=== PATIENT | female | born 1965 | race Caucasian/White ===

== ENCOUNTER 2016-10-08 12:16 | Emergency (ER) | payer OTHER ==
[2016-10-08] MEDS ORDERED: ONDANSETRON 4 MG/2 ML VIAL IVP ONE (12:25)
[2016-10-08] MEDS ORDERED: NORMAL SALINE 10 ML SYRINGE FLUSH IVP PRN (12:25)
[2016-10-08] MEDS ORDERED: Sodium Chloride 0.9% 1,000 ML PRIMARY IV ONE (12:25)
[2016-10-08 13:14] LABS: AMYLASE 46 U/L (30-110); ASPARTATE AMINO TRANSFERASE 24 IU/L (8-39); BILIRUBIN,TOTAL 0.8 mg/dL (0.3-1.2); BLOOD UREA NITROGEN 19 mg/dL (7-22); BUN/CREATININE RATIO 27.14 (6-20); CHLORIDE 112 meq/L (98-112); CREATININE 0.7 mg/dL (0.50-1.20); EST GLOMERULAR FILTRATION > 60 (>60 ml/min/1.73m(2)); GLUCOSE 86 mg/dL (78-110); POTASSIUM 4.1 meq/L (3.8-5.2); SODIUM 139 meq/L (135-145); TOTAL PROTEIN 7.5 g/dL (6.1-8.0)
[2016-10-08 13:15] LABS: BASOPHILS # (AUTO) 0.04 10*3/UL; BASOPHILS % (AUTO) 0.5 % (0-1); EOSINOPHILS % (AUTO) 2.8 % (0-8); HEMATOCRIT 42.1 % (37.0-47.0); HEMOGLOBIN 14.5 g/dL (12.0-16.0); IMM GRAN % (AUTO) 0.1 % (0-5); IMM GRAN# (AUTO) 0.01 10*3/UL; LYMPHOCYTES # (AUTO) 2.39 10*3/uL; LYMPHOCYTES % (AUTO) 29.3 % (10-50); MEAN CORPUSCULAR HEMOGLOBIN 30.5 PG (27-31); MEAN CORPUSCULAR HGB CONC 34.4 g/dL (33-37); MEAN PLATELET VOLUME 10.8 FL (7.4-12.2); MONOCYTES % (AUTO) 7.3 % (5-15); RDW COEFFICIENT OF VARIATION 14.3 % (11.5-14.5); RED BLOOD COUNT 4.76 10^6/uL (4.20-5.40); WHITE BLOOD COUNT 8.17 10^3/uL (4.8-10.8)
[2016-10-08 13:17] LABS: PLATELET MORPHOLOGY COMMENT NORMAL MORPHOLOGY (NORM)
--- NOTE | 2016-10-08 15:17 | DI ---
HISTORY: Abdominal pain. PREVIOUS EXAM: None available. TECHNIQUE: Multiple helically acquired CT images are obtained through the abdomen and pelvis without contrast. FINDINGS: CT images demonstrate a large pericardial effusion. The lung bases are clear except for a small left pleural effusion. There is also a small right pleural effusion. The liver is unremarkable. The gallbladder is distended, but no stones are seen in the common bile d uct appears normal. The spleen and pancreas are unremarkable. The adrenals and kidneys are unremarka ble. There is no mesenteric or retroperitoneal lymphadenopathy. The urinary bladder is unremarkable . There is some fluid noted within the rectum. Skeletal structures are unremarkable except for mild loss of intervertebral disc height at the L5/S1 level. There is mild bilateral neural foraminal narrowing. IMPRESSION: 1. Large pericardial effusion. 2. Small bilateral pleural effusions. 3. No acute intra-abdominal pathology.
[2016-10-08 17:38] VITALS: RESP 16; TEMP 96.5
--- NOTE | 2016-10-09 02:37 | PDOC ---
Nausea/Vomiting/Diarrhea HPI - General Chief Complaint: Nausea / Vomiting / Diarrhea Stated Complaint: nausea, vomiting, abdominal pain Date Seen by Provider: 10/08/16 Time Seen by Provider: 12:15 Source: POSITIVE: Patient Exam Limitations: POSITIVE: No limitations Nurse's Notes Reviewed & Considered: Yes - History of Present Illness Initial Comments: The patient is a 51-year-old female. She presented to the urgent care clinic, who sent her to the emergency room for evaluation. Patient states that for the past 4 days she's had some nausea and vomiting and also some periumbilical and upper abdominal discomfort. She states she has had similar episodes in the past and has been diagnosed with irritable bowel syndrome. She states her abdominal pain is somewhat more prominent now than it has been with her previous episodes. Patient has had a hysterectomy. She has a history of paracardial effusions and did have a pericardiocentesis in the past. She states she had one episode of vomiting today and 4 episodes of vomiting in the past 24 hours. Body Location Affected: REPORTS: Abdomen Timing: REPORTS: Intermittent Duration: >24 hours (4 days) Severity: Moderate Quality: REPORTS: "Pain" Abdominal Pain Onset Location: REPORTS: Epigastric, Periumbilical, Suprapubic Abdominal Pain Radiation: REPORTS: No radiation Context: REPORTS: None Modifying Factors: improves with: Nothing Associated Symptoms: REPORTS: Vomiting, Diarrhea Similar Symptoms Previously: Yes Recent Care Received: REPORTS: Recently Seen (As above) Any Prior Injuries Related to Current Complaint?: No - Patient Home Medications Home Medications: Home Medications Cpap 1 unit .ROUTE QHS #1 unit 08/12/15 Pantoprazole Sodium 1 tab PO DAILY #90 tab 12/18/15 Lactobacillus Combination No.4 [Probiotic] 1 each PO BID #60 cap 04/01/16 Cyclobenzaprine HCl 10 mg PO TID #60 tab 06/03/16 Levothyroxine Sodium 1 tab PO DAILY #30 tab 07/12/16 Quetiapine Fumarate [Seroquel] 1 tab ORAL QHS #30 tab 08/12/16 Gabapentin 1 cap PO QID #120 cap 08/24/16 Naproxen [Naprosyn] 500 mg PO BID #60 tab 08/24/16 Clonazepam 1 mg PO QHS PRN #30 09/21/16 Diphenoxylate HCl/Atropine [Diphenoxylate-Atrop 2.5-0.025] 1 each PO Q6-8H PRN # 30 tab 09/21/16 Hyoscyamine Sulfate 0.25 mg PO QID PRN #120 tab 09/21/16 Lidocaine [Lidoderm] 1 patch TRANSDERM DAILY #30 patch 09/21/16 Dicyclomine HCl [Bentyl] 20 mg PO Q6H #30 tablet 10/08/16 - Patient Allergies Allergies/Adverse Reactions: Allergies Allergy/AdvReac Type Severity Reaction Status Date / Time menthol Allergy Intermediate SKIN Verified 10/08/16 12:43 IRRITATION povidone-iodine Allergy Mild RASH Verified 10/08/16 12:43 [From Betadine] soap [From Betadine] Allergy Mild RASH Verified 10/08/16 12:43 green peppers Allergy VOMITING Uncoded 10/08/16 12:43 Past Medical History - heen HEENT History: Recurrent Throat Infect., Other (please comment) Additional HEENT History: PLATOPLASTY-UVULOPLASTY FOR SNORING, farsighted, colapsed ear drum. Cardiovascular History: Other (please comment) Additional Cardiovasular History: Pericardial effusion, enlarged heart, PVCs Respiratory History: Shortness of Breath, Pneumonia Additional Respiratory History: PNA in jun 2013 Gastrointestinal History: GERD, Irritable Bowel Syndrome Additional Gastrointestinal History: ABDOMINAL PAINPossible IBS Genitourinary History: Recurrent UTI, Other (please comment) Additional Genitourinary History: pylonephritis 30 years ago Endocrine History: Hypothyroidism Additional Endocrine History: Possibility of lupus Musculoskeletal History: Arthritis, Other (please comment) Prosthesis or Implant: No Additional Musculoskeletal History: Pelvic and lower back pain, knees bursitis/ NECK PAIN/SHOULDER PAIN Neurological History: Migraines, Motion Sickness Additional Neurological History: occurs when unable to take medications/SEVERE MOTION SICKNESS Blood Disorders: Denies History Psychiatric History: Depression, Anxiety Disorders Additional Psychiatric History: InsomniaNIGHT TERRORS History of Sexually Transmitted Diseases: No Female Reproductive History: Hysterectomy Cancer History: Other (please comment) Cancer Treatment / Date(s) of Treatment: 1997,2008 In Past Year Been Physically Harmed or Verbally Threatened: No History of MDRO: Yes Other Type of MDRO: C-Diff in 2008 History of Other Communicable Diseases: Yes (SHINGLES) Tobacco Use: Never Smoker Alcohol Use: None Substance Use Type: None Previous Surgical History: Yes Type / Date of Surgery: HYSTERECTOMY,TONSILS/ADENOIDS/UVULA/18G TISSUE FROM THROAT,TUBAL LIGATION Anesthesia Reactions: No Malignant Hyperthermia: No Significant Family History: COPD, Diabetes, Heart disease, Lung disease Past Medical History Reviewed: Reviewed - No Changes ROS - Limitations ROS Limitations: No Limitations Constitution: REPORTS: Denies Symptoms Cardiovascular: REPORTS: Denies Cardiac Symptoms Respiratory: REPORTS: Denies Resp Symptoms Neurological: REPORTS: Denies Neuro Symptoms Gastrointestinal: REPORTS: Abdominal Pain, Nausea Musculoskeletal: REPORTS: Denies MS Symptoms Genitourinary: REPORTS: Denies Symptoms Eyes: REPORTS: Denies Symptoms ENT: REPORTS: Denies Symptoms Skin: REPORTS: Denies Skin Symptoms Lympathic: REPORTS: Denies Lympathic Symptoms Immunologic: POSITIVE: Denies Symptoms Psychiatric: POSITIVE: Denies Psych Symptoms Nausea/Vomiting/Diarrhea Exam - General Appearance General Appearance: POSITIVE: Alert, Cooperative, No Acute Distress, No Evidence of Trauma - HEENT HEENT: POSITIVE: Head Inspection Nml, Eyes Inspection Nml, Ears Inspection Nml, Nose Inspection Nml, Oral/Dental Inspect. Nml, Pharynx Inspect. Nml, PERRL, EOMI - Neck Neck: POSITIVE: Supple, Normal Inspection, Non Tender - Respiratory Respiratory: POSITIVE: No Respiratory Distress, Breath Sounds Normal, Chest Non- Tender - Cardiovascular Cardiovascular: POSITIVE: Regular Rate and Rhythm, Heart Sounds Normal, Equal Pulses, Strong Pulses Peripheral Pulses: Radial (R): 2+, Radial (L): 2+ - Chest Chest: POSITIVE: Non Tender - Abdomen Abdomen: Soft: (All Quadrants), Normal Bowel Sounds: (All Quadrants), No Splenomegaly: (All Quadrants), No Hepatomegaly: (All Quadrants), No Guarding: ( All Quadrants), No Rebound: (All Quadrants), No Palpable Pulse: (All Quadrants) , No Palpabale Mass: (All Quadrants), No Distention: (All Quadrants), No Rigidity: (All Quadrants), Tenderness Noted: (RUQ), (LUQ), (RLQ), (LLQ) Additional Abdominal Details: Abdominal examination shows bowel sounds to be active. Patient does express some discomfort diffusely over the abdomen, without masses or organomegaly or rebound. - Back Back: POSITIVE: Normal Inspection - Skin Skin: POSITIVE: Intact, Normal For Race, Warm, Dry, No Rash - Extremities Extremity: Non-Tender: (All Extremities), Normal ROM: (All Extremities), Normal Inspection: (All Extremities) - Neurological / Psychological Neurological: POSITIVE: Oriented X3, strategy associate Normal As Tested, Motor Normal, Sensation Normal, 5, 6 Images - Complete Complete: 1 - Diffuse abdominal tenderness N/V/D Progress - Results Reviewed by me Xrays/CTs/US Reviewed by me: Yes Discussed with Radiologist: Yes Radiology Findings: CT scan abdomen and pelvis show no acute intra-abdominal pathology; there is noted incidentally to be a reaccumulation a paracardial fluid. Lab Results Reviewed: Yes Lab Results:: Laboratory Results 10/08/16 Range/Units 12:55 WBC 8.17 (4.8-10.8) 10^3/uL RBC 4.76 (4.20-5.40) 10^6/uL Hgb 14.5 (12.0-16.0) g/dL Hct 42.1 (37.0-47.0) % MCV 88.4 (81-99) FL MCH 30.5 (27-31) PG MCHC 34.4 (33-37) g/dL RDW Std Deviation 45.1 (39-50) fL RDW Coeff of James 14.3 (11.5-14.5) % Plt Count 205 (140-350) 10*3/uL MPV 10.8 (7.4-12.2) FL Immature Gran % (Auto) 0.1 (0-5) % Neut % (Auto) 60.0 (50-80) % Lymph % (Auto) 29.3 (10-50) % Moody % (Auto) 7.3 (5-15) % Eos % (Auto) 2.8 (0-8) % Baso % (Auto) 0.5 (0-1) % Immature Gran # (Auto) 0.01 10*3/UL Neut # (Auto) 4.90 10*3/UL Lymph # (Auto) 2.39 10*3/uL Moody # (Auto) 0.60 (0.3-0.8) 10*3/UL Eos # (Auto) 0.23 10*3/UL Baso # (Auto) 0.04 10*3/UL WBC Morphology Comment Normal morphology (NORM) Plt Morphology Comment Normal morphology (NORM) RBC Morph Comment Normal morphology (NORM) Sodium 139 (135-145) meq/L Potassium 4.1 (3.8-5.2) meq/L Chloride 112 (98-112) meq/L Carbon Dioxide 17 L (23-33) meq/L Anion Gap 10 (5-20) BUN 19 (7-22) mg/dL Creatinine 0.7 (0.50-1.20) mg/dL Estimated GFR > 60 (>60 ml/min/1.73m(2)) BUN/Creatinine Ratio 27.14 H (6-20) Glucose 86 (78-110) mg/dL Calculated Osmolality 288.0 (267-292) mOsm/kg Calcium 9.0 (8.7-10.7) mg/dL Total Bilirubin 0.8 (0.3-1.2) mg/dL AST 24 (8-39) IU/L ALT 34 (9-52) IU/L Alkaline Phosphatase 73 (38-126) IU/L Total Protein 7.5 (6.1-8.0) g/dL Albumin 4.0 (3.5-4.8) g/dL Globulin 3.5 (2.50-4.10) g/dL Albumin/Globulin Ratio 1.10 L (1.3-2.0) mg/g Amylase 46 (30-110) U/L Lipase 30 (23-300) IU/L - Patient's Progress Pain Medication Addressed: POSITIVE: Yes (Recommended Tylenol; we'll give a trial of Bentyl.) School/Work Release Addressed: POSITIVE: Not Applicable Re-examine Time: 15:40 Re-Examine Comment: No vomiting in the emergency room. Patient hydrated with normal saline and was given Zofran. States she feels much better on discharge. Status: POSITIVE: Improved, Re-Examined - Consult Counseled: POSITIVE: Patient, RE: Lab Results, RE: Radiology Results, RE: DX, RE : Need for F/U Patient Care Time - Estimated PCT Patient Care Time (In Minutes): 50 Vital Signs - VS Reviewed Vital Signs Reviewed: Yes Discharge Clinical Impression: Pericardial effusion, Irritable bowel Discharge Disposition: Discharged to Home Condition: Fair Prescriptions / Orders: Dicyclomine HCl [Bentyl] 20 mg PO Q6H #30 tablet Patient Instructions Given at Discharge: Acute Abdominal Pain (ED) Additional Instructions: The CAT scan of your abdomen and pelvis were normal. Incidentally noted on the scan, however, was a recurrence of your paracardial effusion, which you are no about. Please follow-up with your primary care provider and you might need an echocardiogram and possibly another paracardial centesis. With regard to your abdominal pain, I think your symptoms are do to your irritable bowel syndrome. Try taking Bentyl, one by mouth after each meal and before bedtime. Return here anytime if condition worsens in any way. Follow-up with your primary care provider. Follow Up With: URIEL ORTEZ [Primary Care Provider] - (Instructions as above. Follow-up with your primary care provider. Return here anytime if condition worsens in any way.)
== END 2016-10-08 16:00 | disposition home or self-care (01) ==
LOC: ER 12:16
DX: K58.0 Irritable bowel syndrome with diarrhea (principal); I31.3 Pericardial effusion (noninflammatory); R10.33 Periumbilical pain
CPT/HCPCS: 74177; 80053; 82150; 83690; 85025; 96361; 96374; 99283; J2405; J7030

== ENCOUNTER → 2016-10-19 | Outpatient (CLI) | payer OTHER ==
[2016-10-19 15:56] LABS: FREE T4 (FREE THYROXINE) 0.84 ng/dL (0.93-1.71)
== END ==
LOC: MOB LAB 14:58
PROVIDERS: ATTEND Family Medicine
DX: E03.9 Hypothyroidism, unspecified (principal)
CPT/HCPCS: 36415; 84439; 84443

== ENCOUNTER → 2016-11-07 | Outpatient (CLI) | payer OTHER ==
--- NOTE | 2016-11-07 13:53 | DI ---
Tc-99 SULFUR COLLOID GASTRIC EMPTYING SCAN, 11/07/2016 6:10 AM : Clinical History: Gastroparesis. Previous Related Exam: None. The patient was given oatmeal mixed with 1.1 mCi of Tc-99 sulfur colloid. Sequential anterior imaging is performed at one minute intervals out to 90 minutes. The duration of the lag time before emptying begins is 10 minutes. Gastric T1/2 emptying time was calculated and is 55 minutes. Gastric emptying at 90 minutes is calculated to be 52 %. Reading: Normal Tc-99 sulfur colloid gastric emptying study. The gastric emptying at 90 minutes is 52%, and th is is at the lower limits of normal.
== END ==
LOC: NM 05:53
PROVIDERS: ATTEND Internal Medicine Gastroenterology
DX: R14.0 Abdominal distension (gaseous) (principal); R11.2 Nausea with vomiting, unspecified
CPT/HCPCS: 78264; A9541

== ENCOUNTER → 2016-11-25 | Outpatient (CLI) | payer OTHER ==
--- NOTE | 2016-11-25 11:06 | DI ---
GALLBLADDER AND LIVER ULTRASOUND, 11/25/2016 9:22 AM: Clinical History: Right upper quadrant abdominal pain. Previous Exam: 09/10/2012. Comparison is also made with previous CT scans without as well as with contr ast from 04/01/2014; 03/11/2015; 07/17/2015; 04/25/2016; and 10/08/2016. Technique: Scans are performed through the right upper quadrant in multiple projections. The patient was rolled from side to side and the gallbladder was balloted with the probe to facilitate visualizat ion of small gallstones. The gallbladder is well distended and has a normal wall thickness. There are no gallstones. The commo n bile duct measures 5 mm. The pancreas is visualized from the head to the body and is normal. The li britton has increased echogenicity with decreased through transmission consistent with mild fatty infiltr ation. In the posterior aspect of the left lobe of the liver is a hypoechoic inhomogeneous 3 x 5 x 4 cm irregularly shaped lesion that has vascularity along the perimeter. There is no capsule. This prob ably represents focal nodular hyperplasia. Review of the multiple previous CT scans show that in retr ospect using very narrow windows to evaluate the liver, this lesion was present. On the CT scans, it is slightly higher in density than the surrounding parenchyma on the noncontrast scans and it is slig htly increased in density on the postcontrast scans. Near the perimeter of this lesion is an area kylee t remains lower in density than the enhancing tissue following contrast. Followup with an MRI scan of the liver with Eovist IV contrast is recommended to evaluate this lesion. It has not increased in si ze since 2013. The right kidney and IVC and aorta are normal. Readin. Normal gallbladder ultrasound. 2. There is a 3 x 5 x 4 cm hypoechoic inhomogeneous lesion without a capsule located in the posterio r aspect of the left lobe of the liver. This may represent focal nodular hyperplasia. In retrospect, this lesion was present on previous CT scans dating back to 2013. Followup with an MRI scan using Eov ist IV contrast is recommended. 3. The right kidney, pancreas, IVC, and aorta are normal.
== END ==
LOC: US 09:11
PROVIDERS: ATTEND Family Medicine
DX: R10.11 Right upper quadrant pain (principal); K76.9 Liver disease, unspecified
CPT/HCPCS: 76705

== ENCOUNTER → 2016-11-28 | Outpatient (CLI) | payer OTHER ==
--- NOTE | 2016-11-28 14:51 | DI ---
RIGHT KNEE, 11/28/2016 2:10 PM: Clinical History: Right knee pain. Previous Exam: 08/02/2014. 4 views are submitted. The AP and tunnel projections are weight bearing views. There is no acute soft tissue, osseous, or joint abnormality. Reading: Normal right knee exam.
--- NOTE | 2016-11-28 15:01 | DI ---
LEFT WRIST, 11/28/2016 2:13 PM: Clinical History: Left thumb pain. Previous Exam: 08/02/2014. 3 views are submitted. There is no acute soft tissue, osseous, or joint abnormality. No abnormality i s present in the triscaphe joint. Reading: Normal left wrist exam.
== END ==
LOC: ORTHO 14:44
PROVIDERS: ATTEND Orthopaedic Surgery
DX: M25.561 Pain in right knee (principal); M65.4 Radial styloid tenosynovitis [de Quervain]; M79.645 Pain in left finger(s); M25.461 Effusion, right knee
CPT/HCPCS: 73110; 73564

== ENCOUNTER → 2016-12-06 | Outpatient (CLI) | payer OTHER ==
--- NOTE | 2016-12-06 10:11 | DI ---
MRI ABDOMEN W/WO CN,12/06/2016 7:58 AM: Clinical History: Abnormal finding on diagnostic imaging of the liver Previous Exam: Ultrasound abdomen performed November 25, [address] abdomen pelvis performed October 08 017 Findings: Multiplanar MR images are obtained through the abdomen. There are small bilateral pleural effusions. The hyperdense area seen on the CT scan of the medial segment of the left lobe of the liver is not we ll demarcated on the MRI images. There is no abnormal enhancement of this area. Delayed images demonstrate no delayed enhancement. The gallbladder is unremarkable. Visualized portions of the kidneys are unremarkable as well. The pancreas is also unremarkable. Skele elpidio structures are unremarkable. There is no abnormal in and out of phase imaging. Impression: The area of abnormal attenuation on the CT scan and ultrasound demonstrates no visible abnormality on pre-or postcontrast enhanced MRI. This could be a transient hepatic attenuation difference. This marga uld be followed up with [address] to document stability.
== END ==
LOC: MRI 07:56
PROVIDERS: ATTEND Family Medicine
DX: R93.2 Abnormal findings on diagnostic imaging of liver and biliary tract (principal)
CPT/HCPCS: 74183; A9579

== ENCOUNTER → 2016-12-14 | Outpatient (CLI) | payer OTHER ==
--- NOTE | 2016-12-15 09:02 | DI ---
MRI LOW EXTREMITY JNT W/O CN,12/14/2016 1:55 PM: Clinical History: Knee pain Previous Exam: None at this facility. Findings: Multiplanar MR images are obtained through the right knee without contrast, and demonstrate a small r ight knee joint effusion. There are some mild thinning of the articular cartilage within the anterior compartment. There is als o mild thinning of the articular cartilage within the medial and lateral compartments. There is some fissuring of the articular cartilage without full-thickness defects. The medial meniscus is intact. The lateral meniscus is also intact. The anterior and posterior cruciate ligaments are intact. The medial and lateral collateral ligaments are also intact. There are normal vascular flow voids. There is normal signal within the skeletal muscle. There is a small Wallace's cyst. Impression: 1. Mild tricompartmental chondromalacia. 2. Small knee joint effusion. 3. Small Wallace's cyst.
== END ==
LOC: MRI 13:46
PROVIDERS: ATTEND Orthopaedic Surgery
DX: M25.561 Pain in right knee (principal); M94.261 Chondromalacia, right knee; M25.461 Effusion, right knee; M71.21 Synovial cyst of popliteal space [Baker], right knee
CPT/HCPCS: 73721

== ENCOUNTER → 2016-12-16 | Outpatient (CLI) | payer OTHER ==
[2016-12-16 14:02] LABS: FREE T4 (FREE THYROXINE) 0.78 ng/dL (0.93-1.71)
== END ==
LOC: LAB 12:53
PROVIDERS: ATTEND Family Medicine
DX: E03.9 Hypothyroidism, unspecified (principal)
CPT/HCPCS: 36415; 84439; 84443

== ENCOUNTER 2016-12-27 09:42 | Day surgery (SDC) | payer OTHER ==
[~2016-12-27 09:42] MED LIST: LIDOCAINE W/ SODIUM BICARB 0.5 ML SYR ONE; Lactated Ringers 1,000 ML PRIMARY IV ONE; ceFAZolin Inj 2gm (Premix) 50 ML IV ONE
[2016-12-27] MEDS ORDERED: Ropivacaine 0.2% VIAL 20 ML ONE (11:15)
[2016-12-27] MEDS ORDERED: EPINEPHrine Inj (1:1,000) 30mg/30ml vial ONE (11:15)
[2016-12-27] MEDS ORDERED: PANTOPRAZOLE IV 40 MG VIAL ONE (11:33)
[2016-12-27] MEDS ORDERED: Acetaminophen 1000mg Inj 100 ML IV ONE (11:35)
[2016-12-27] MEDS ORDERED: LIDOCAINE MPF 2% - 5 ML (20 MG/1 ML) ONE (11:37)
[2016-12-27] MEDS ORDERED: fentaNYL Inj 250 MCG/5 ML VIAL ONE (11:38)
[2016-12-27] MEDS ORDERED: MIDAZOLAM 5 MG/1 ML ONE (11:38)
[2016-12-27] MEDS ORDERED: PHENYLEPHRINE 10,000 MCG/1 ML VIAL ONE (12:21)
[2016-12-27] MEDS ORDERED: KETOROLAC 30 MG/1 ML VIAL ONE (12:44)
[2016-12-27] MEDS ORDERED: Prochlorperazine Edisylate Inj 10mg/2ml vial IVP PRN (12:58)
[2016-12-27] MEDS ORDERED: fentaNYL Inj 100 MCG/2 ML VIAL IVP PRN (12:58)
[2016-12-27] MEDS ORDERED: NORMAL SALINE 10 ML SYRINGE FLUSH IVP PRN ×2 (12:58→13:39)
[2016-12-27] MEDS ORDERED: ONDANSETRON 4 MG/2 ML VIAL IVP PRN ×2 (12:58→13:39)
[2016-12-27] MEDS ORDERED: Lactated Ringers 1,000 ML PRIMARY IV SCH ×2 (13:00→13:45)
[2016-12-27] MEDS ORDERED: Lactated Ringers 1,000 ML PRIMARY IV ONE (13:03)
[2016-12-27] MEDS ORDERED: BETAMET ACET/BETAMET NA PH 6 MG/1 ML - 5 ML ONE (13:19)
[2016-12-27] MEDS ORDERED: Prochlorperazine Edisylate Inj 10mg/2ml vial ONE (13:38)
[2016-12-27] MEDS ORDERED: HYDROmorphone 2 MG/1 ML ONE (13:38)
[2016-12-27] MEDS ORDERED: MAG HYDROX/AL HYDROX/SIMETH 30 ML SUSP PO PRN (13:39)
[2016-12-27] MEDS ORDERED: Ondansetron ODT Tab 8 MG TAB PO PRN (13:39)
[2016-12-27] MEDS ORDERED: ACETAMINOPHEN 325 MG TABLET PO PRN (13:39)
[2016-12-27] MEDS ORDERED: MORPHINE SULFATE 2 MG/1 ML IVP PRN (13:39)
[2016-12-27] MEDS ORDERED: Prochlorperazine Tab 10 MG TAB PO PRN (13:39)
[2016-12-27] MEDS ORDERED: CALCIUM CARBONATE 500 MG (TUMS) CHEWABLE TABLET PO PRN (13:39)
[2016-12-27] MEDS ORDERED: BISACODYL 5 MG TABLET PO PRN (13:39)
[2016-12-27] MEDS ORDERED: IBUPROFEN 400 MG TABLET PO PRN (13:39)
[2016-12-27] MEDS ORDERED: BISACODYL 10 MG SUPPOSITORY RECTAL PRN (13:39)
[2016-12-27] MEDS ORDERED: diphenhydrAMINE 25 MG CAPSULE PO PRN (13:39)
[2016-12-27] MEDS ORDERED: oxyCODONE/APAP 7.5/325 Tab 1 TAB TAB PO PRN (13:39)
[2016-12-27] MEDS: HYDROmorphone 2 MG/1 ML IVP PRN ×2 (13:43→13:50)
[2016-12-27] MEDS ORDERED: oxyCODONE/APAP 7.5/325 Tab 1 TAB TAB PO ONE (14:38)
[2016-12-27] MEDS ORDERED: HYDROcodone-APAP 7.5 MG-325 MG TABLET PO ONE (17:43)
[2016-12-27] MEDS ORDERED: HYDROcodone-APAP 7.5 MG-325 MG TABLET PO PRN (18:25)
[2016-12-27 18:28] VITALS: RESP 16
[2016-12-27 18:30] VITALS: TEMP 97.6
[2016-12-28] MEDS ORDERED: ASPIRIN 325 MG EC TABLET PO SCH (09:00)
--- NOTE | 2016-12-29 10:45 | OPS CRUTCH ---
Referral Reason: Gait Training/Knee Cryo Cuff S: The patient states she is more comfortable on crutches than a walker. She has used crutches multiple times. O: The patient ambulated 50 feet with crutches. The patient was also issued a Cryo-Cuff and instructed in its proper use and care. A: The patient was very fatigued after ambulation; however, she was able to perform gait training well. P: No further therapy is indicated at this time. MTDD
== END 2016-12-27 17:51 | disposition home or self-care (01) ==
LOC: SDSC 09:42
PROVIDERS: ATTEND Orthopaedic Surgery
DX: S83.31XA Tear of articular cartilage of right knee, current, initial encounter (principal); M65.861 Other synovitis and tenosynovitis, right lower leg
CPT/HCPCS: 29876; 97116; J0131; J0171; J0690; J0702; J1885; J2704; J2795; J3010; J0780; J1170; J2001; J2250; J2370; J3490; J7120

== ENCOUNTER → 2017-01-09 | Outpatient (CLI) | payer OTHER ==
--- NOTE | 2017-01-10 09:13 | DI ---
VENOUS DOPPLER ULTRASOUND OF THE RIGHT LOWER EXTREMITY, 01/09/2017 12:35 PM: Clinical History: Right posterior knee pain Previous Exam: None. Technique: 2D real-time imaging is supplemented with color Doppler ultrasound. Compression and augmen tation maneuvers were performed. The long saphenous vein is normal. Reading: No evidence of deep venous thrombosis.
== END ==
LOC: US 12:33
PROVIDERS: ATTEND Orthopaedic Surgery
DX: M25.561 Pain in right knee (principal); Z98.890 Other specified postprocedural states
CPT/HCPCS: 93971

== ENCOUNTER → 2017-02-16 | Outpatient (CLI) | payer OTHER ==
[2017-02-16 15:20] LABS: FREE T4 (FREE THYROXINE) 0.79 ng/dL (0.93-1.71)
== END ==
LOC: LAB 14:16
PROVIDERS: ATTEND Family Medicine
DX: E03.9 Hypothyroidism, unspecified (principal)
CPT/HCPCS: 36415; 84439; 84443

== ENCOUNTER 2018-12-20 10:12 | Observation (INO) ==
[~2018-12-20 10:12] MED LIST changes: +LIDOCAINE W/ SODIUM BICARB 0.5 ML SYR SUBD ONE; +Nasal Sanitizer POPSWAB ampule 3 AMP (Nozin) PREOP DOSE ENOS SCH; +Sodium Chloride 0.9% 0 ML ONE; +Vancomycin Inj 1gm vial ONE; +ceFAZolin Inj 2gm (Premix) 2 GM/50 ML BAG IV ONE; -ceFAZolin Inj 2gm (Premix) 50 ML IV ONE
[2018-12-20] MEDS ORDERED: fentaNYL Inj 100 MCG/2 ML VIAL ONE (11:58)
[2018-12-20] MEDS ORDERED: Sodium Chloride 0.9% vial 10 ML ONE (11:58)
[2018-12-20] MEDS ORDERED: MIDAZOLAM 5 MG/1 ML ONE (11:58)
[2018-12-20] MEDS ORDERED: BACITRACIN 50,000 UNIT VIAL IRRIG ONE (11:58)
[2018-12-20] MEDS ORDERED: REMIFENTANIL 1 MG/1 ML IV ONE (11:58)
[2018-12-20] MEDS ORDERED: REMIFENTANIL HCL 2 MG VIAL IV ONE (11:58)
[2018-12-20] MEDS ORDERED: THROMBIN (BOVINE) 20,000 UNIT KIT TOPICAL ONE (12:00)
[2018-12-20] MEDS ORDERED: LIDOCAINE MPF 2% - 5 ML (20 MG/1 ML) ONE (12:03)
[2018-12-20] MEDS ORDERED: KETAMINE HCL 100 MG/2 ML SYRINGE IV ONE (12:05)
[2018-12-20] MEDS ORDERED: DEXAMETHASONE PF 10 MG/1 ML VIAL ONE (12:08)
[2018-12-20] MEDS ORDERED: Lactated Ringers 1,000 ML PRIMARY IV ONE ×2 (13:28→15:16)
[2018-12-20] MEDS ORDERED: ePHEDrine Inj 50 MG/ML AMP ONE (13:58)
[2018-12-20] MEDS ORDERED: HYDROmorphone 2 MG/1 ML ONE ×3 (15:09→16:59)
--- NOTE | 2018-12-20 15:33 | OPNOTE.NEU ---
Operative Note Operative Note: Neurosurgical Services Operative Note [facility] [id number] Frances Telles Date of Surgery: 12/20/18 Preoperative Diagnosis: SPONDYLOSIS WITH RADICULOPATHY CERVICAL Post-Op Diagnosis Codes: Cervical disc herniation with radiculopathy Procedure(s): Anterior cervical decompression and fusion, C5-6, C6-7 1. Anterior Cervical Decompression; 33916, 40772 2. Anterior Cervical Arthrodesis; 75659, 19394 3. Anterior Cervical Plating; 65903 4. Allograft Structural Graft; 99760 X2 5. Preparation of bone graft: A. Local autograft, same incision; B. [place] of morselized iliac crest autograft, separate incision; C. [place] of bone marrow aspirate, iliac crest; D. Addition of osteopromotive calcium compound; allograft DBM; 6. Intraoperative microsurgical technique 7. Intraoperative fluoroscopic navigation, [id number] 8. Intraoperative continuous neural monitoring, motor and sensory Surgeon(s): Lon Benoit MD Special Needs Nanny(s): RICHARD Yarbrough and Edel Barron PA-C Anesthesia: General Anesthesia Anesthesiologist / BANK MESSENGER: Cordelia Hawthorne CRNA Brief Findings: Large left C5-6 herniated disc, moderate right C6-7 herniated disc. Procedure(s): We discussed the procedure, risks, advantages and disadvantages of surgical intervention at length. To prevent further pain, disability and potential progression of neurologic deficits, the patient would like to proceed with surgery. Introduction: After obtaining informed consent, careful consideration of the pre-operative studies and evaluation, the patient asked to proceed with surgery. The patient was taken to the operating room, given an anesthetic, positioned and prepared for surgery. All pressure points were meticulously padded and great care was taken to insure the patient was appropriately positioned to avoid any abnormal strain on the extremities or any other area. The operative region was prepared with iodine solution and isolated aseptically using routine sterile draping. Position / Approach: The patient was placed in the supine position such that an approach could be taken to the cervical spine. Exposure: A right transverse neck incision at the abnormal level which was confirmed using fluoroscopy was made through skin, subcutaneous fat and the platysma muscle. Using sharp and blunt dissection, the anterior spine was exposed medial to the sternocleidomastoid muscle and carotid sheath and the longus coli muscles were carefully reflected off the vertebrae using electrocautery and a deep self-retaining retractor was place beneath them. Thereafter, distraction pins were place within the vertebral bodies above and below the abnormal levels. The inner space was then distracted to improve exposure during the decompression. DECOMPRESSION: While distracting the interspace, a radical discectomy was performed. After removal of the disk using curettes considerable posterior osteophytosis was encountered particularly on the left and a large disc he rniation was identified at C5-6 and a moderately large herniated disc at C6-7 on the right. The osteophyte was removed using a high speed drill equipped with a prabhjot bur, microsurgical technique and the intraoperative microscope for visualization. There was clear evidence of compression upon the exiting nerve root and spinal cord. The posterior longitudinal ligament was taken down and wide foraminotomies were fashioned on both sides. The epidural space was explored extensively confirming no further compression upon the neural elements. ARTHRODESIS: After the decompression, the height of the inner space was measured and an syructural allograft bone graft was selected which would fit snuggly within the space. The graft was loaded with bone graft which was prepared as described. The graft was placed using the fluoroscope to assess the graft position so that it could be countersunk appropriately. HARVEST / PREPARATION of BONE GRAFT: The "bone graft" was prepared from the patient's own bone derived from the left hip collected by curetting bone from the hip through a separate slab incision(). This morselized bone was admixed with bone marrow aspirate also obtained from the hip (). Autologous local bone which was removed during the decompression through the same incision used for the fusion was stripped of surrounding soft tissues, morselized () and mixed with osteopromotive calcium compound as well as allograft demineralized bone matrix (), and this was combined with the previously described hip graft and concentrated bone marrow aspirate to form the "bone graft." ANTERIOR PLATE INSTRUMENTATION: Having completed the decompression and placement of the interbody spacers, an Alphatec Trestle plate was selected which spanned the levels and also could be contoured to the anterior aspect of the patient's cervical spine. Osteophytes along the anterior spine were removed to allow the plate to conform to the spine appropriately. The plate was then secured to the spine using 14 mm screws, all of which were locked into position using the locking mechanism of the plate. Additional bone graft material was placed around the plate and around the implanted spacer within the inner space. NEED FOR DIRECTOR OF MARKETING ANALYTICS: Mitchel Noonan PA-C, was instrumental throughout the operation to assist with exposure of the neural structures and protect them as the bony elements were removed. He was also instrumental during placement of the implant(s) which often takes more than two hands to perform safely and efficiently. Edel Barron PA-C, functioned similarly during the procedure. OTHER TOOLS USED / UTILITY: All manipulation of the neural elements was performed using the microscope for visualization. As well, the fluoroscope was used to confirm the levels as indicated as well as to assist during implant placement and later to assess the patient's spinal alignment. There were no intra operative complications. CLOSURE: The wound was irrigated with copious amounts of antibiotic impregnated saline solution and immaculate hemostasis was achieved using thrombin soaked Gelfoam, bone wax along the bony margins, as well as electrocautery. Surgicel was used to cover the implanted graft and plate. A drain was placed in the pre- vertebral space and tunneled to an exit site lateral to the formed incision. The wound was then closed in anatomical layers using Vicryl suture in the subcutaneous tissue layers followed by Steri-Strips on the skin. Estimated Blood Loss: 25 cc Operative hemorrhage? Yes, expected amount. Drains: Hemovac Condition: Good Complications: None Authenticated by Dr. Benoit On Production
[2018-12-20] MEDS ORDERED: Ondansetron ODT Tab 8 MG TAB PO PRN (15:49)
[2018-12-20] MEDS ORDERED: Prochlorperazine Edisylate Inj 10mg/2ml vial IVP PRN (15:49)
[2018-12-20] MEDS ORDERED: ONDANSETRON 4 MG/2 ML VIAL IVP PRN ×2 (15:49→17:54)
[2018-12-20] MEDS ORDERED: ATROPINE SULFATE 0.4 MG/1 ML VIAL IVP PRN (15:49)
[2018-12-20] MEDS ORDERED: LIDOCAINE W/ SODIUM BICARB 0.5 ML SYR SUBD PRN ×2 (15:49→15:50)
[2018-12-20] MEDS: HYDROmorphone 2 MG/1 ML IVP PRN ×3 (15:53→16:58)
--- NOTE | 2018-12-20 15:57 | CRNA.PROGR ---
Anesthesia Time - Procedure/Recovery Time Start Date: 12/20/18 End Date: 12/20/18 Anesthesia : Time In: 12:22 Anesthesia : Time Out: 15:45 Anesthesia : Total Time: 203 - Total Anesthesia Time Total Anesthesia Time (minutes): 203 - Other Weight: 108.862 kg Height: 5 ft 10 in Body Mass Index (BMI): 34.4 Physical Status: P2 Anesthesia Type: General Anesthesia : ET ([facility])
--- NOTE | 2018-12-20 15:59 | CRNA.PROGR ---
Post Anesthesia Phase II - Post Anesthesia Phase II Patient Stable and Discharged To: Med/Surg Care Assumed By Surgeon: Lon Benoit MD Temperature: 96.9 F Pulse Rate: 86 Respiratory Rate: 18 Blood Pressure: 130/102 Pulse Ox: 96 Total Marilynn Score at Discharge: 9 Post Anesthesia Discharge Criteria Met: Yes
--- NOTE | 2018-12-20 15:59 | CRNA.PROGR ---
Anesthesia Recovery Phase I - Post Anesthesia Evaluation Patient's Condition on Arrival in Phase I: Stable Patient's Condition on Arrival in Phase II: Stable (Medicated. No airway issues with and or post extubation.) Pain Level: 7
[2018-12-20] MEDS ORDERED: Lactated Ringers 1,000 ML PRIMARY IV SCH (16:00)
[2018-12-20] MEDS ORDERED: Propofol 1,000 MG/100 ML VIAL IV ONE (16:18)
[2018-12-20] MEDS ORDERED: SUCCINYLCHOLINE CHLORIDE 20 MG/1 ML - 10 ML ONE (16:21)
[2018-12-20] MEDS ORDERED: DIAZEPAM 5 MG TABLET ONE (16:33)
[2018-12-20] MEDS ORDERED: DIAZEPAM 5 MG TABLET PO ONE (16:34)
[2018-12-20] MEDS ORDERED: ACETAMINOPHEN 325 MG TABLET PO PRN (17:54)
[2018-12-20] MEDS ORDERED: CPAP SCH (17:54)
[2018-12-20] MEDS ORDERED: Ondansetron ODT Tab 4 MG TAB PO PRN (17:54)
[2018-12-20] MEDS ORDERED: Non-Formulary Drug (Lactobacillus Combination No.4 [Probiotic] 3,000 MMU CELLS) PO PRN (17:54)
[2018-12-20] MEDS ORDERED: CYCLOBENZAPRINE 10 MG TABLET PO PRN (17:54)
[2018-12-20] MEDS ORDERED: D5-1/2NS 1,000 ML PRIMARY IV SCH (17:54)
[2018-12-20] MEDS ORDERED: HYOSCYAMINE SULFATE PO PRN (17:54)
[2018-12-20] MEDS: oxyCODONE-ACETAMINOPHEN 5-325 TAB PO PRN ×2 (18:06→22:13)
[2018-12-20] MEDS ORDERED: tiZANidine Tab 4 MG TAB PO PRN (18:06)
[2018-12-20] MEDS: OMEPRAZOLE 40 MG CAPSULE PO SCH ×3 (19:14→22:06)
[2018-12-20] MEDS: GABAPENTIN 300 MG CAPSULE PO SCH ×2 (19:15→21:28)
[2018-12-20 19:35] VITALS: RESP 20
[2018-12-20] MEDS: MORPHINE SULFATE 2 MG/1 ML IVP PRN ×2 (20:05→23:59)
[2018-12-20] MEDS ORDERED: GABAPENTIN 300 MG CAPSULE PO SCH (21:00)
[2018-12-20] MEDS ORDERED: ClonazePAM Tab 1 MG TABLET PO SCH (21:00)
[2018-12-20] MEDS ORDERED: FUROSEMIDE 40 MG TABLET PO SCH (21:00)
[2018-12-20] MEDS ORDERED: QUETIAPINE FUMARATE 300 MG PO SCH (21:00)
[2018-12-20] MEDS ORDERED: Non-Formulary Drug (Cetirizine Hcl [Wal-Zyr] 10 MG) PO SCH (21:00)
[2018-12-20] MEDS: SULFAMETHOXAZOLE/TRIMETHOPRIM 800/160 MG TABLET PO SCH (21:36)
[2018-12-20] MEDS: tiZANidine Tab 4 MG TAB PO PRN (21:40)
[2018-12-21] MEDS: oxyCODONE-ACETAMINOPHEN 5-325 TAB PO PRN ×3 (02:10→12:22)
[2018-12-21] MEDS: MORPHINE SULFATE 2 MG/1 ML IVP PRN (04:14)
[2018-12-21] MEDS ORDERED: LEVOTHYROXINE 100 MCG TABLET PO SCH (05:30)
[2018-12-21] MEDS: tiZANidine Tab 4 MG TAB PO PRN (07:53)
--- NOTE | 2018-12-21 08:17 | NEURO.PROG ---
Subjective Post Op Day: 1 Pain Management: PO Wilcox Catheter: No Flatus: Yes Diet: Regular Ambulating: Yes Date of Service: 12/21/18 Time of Service: 08:12 Interval History: Mrs. Telles is post op day one, s/p C5-6 and C6-7 anterior cervical discectomy and fusion. She reports that she is doing well. She reports some surgical pain and reports that her pre operative pain is better. She has no difficulty swallowing except did not yet like carbonated drinks. She feels like her left side feels a little stronger. She is ambulating with no difficulty. No difficulty with bowel or bladder. She wants to go home. Objective : Data - Vital Signs Vital Signs and I&O: Vital Signs - Last Taken Temperature 97.8 F 12/21/18 07:07 Pulse Rate 82 12/21/18 07:07 Respiratory Rate 20 12/21/18 07:07 Blood Pressure 128/68 12/21/18 07:07 Pulse Ox 93 12/21/18 07:07 Intake and Output (24hr x 4 totals) 12/19/18 12/20/18 12/21/18 12/22/18 05:59 05:59 05:59 05:59 Intake Total 3302 / 3302 300 / 300 Output Total 1145 / 1145 10 / 10 Balance 2157 / 2157 290 / 290 Objective : Exam - General General Appearance: No Acute Distress, Cooperative, Obese - Head Head Exam: Normal Inspection - Eye Eye Exam: Normal Appearance - ENT ENT Exam: Normal Exam - Neck Neck Exam: Normal Inspection, No Tenderness - Respiratory Respiratory Exam: Breathing Non Labored - Cardiovascular Cardiovascular Exam: RRR - GI/Abdominal GI/Abdominal Exam: Non Tender, Non Distended - Rectal Rectal Exam: Deferred - External Exam: Deferred Exam: Deferred - Extremities Extremities Exam: Normal Inspection, Full ROM - Back Back Exam: Full ROM - Neurological Neurological Exam: Alert, Oriented x 3 Additional Neurological Exam Details: Left tricep strength is 4/5, no change. - Psychiatric Psychiatric Exam: Normal Affect, Normal Mood - Integumentary Integumentary Exam: Normal Color Additional Integumentary Exam Details: Right anterior intact cervical wound with surgical drain. Satisfactory drain output, 10 mls. Removed drain. - Central Line Examination Central Line Present on Admission: No Assessment and Plan - Assessment / Plan Additional Assessment/Plan Details: Post op day 1, s/p C5-6, C6-7 anterior cervical discectomy and fusion. She is doing well. She reports she is happy with her surgery. Satisfactory drain output and drain removed. Discussed surgical wound care and follow up. Follow up in 2 weeks, [place] with ELY Barron or in [place] with Dr. Benoit.
--- NOTE | 2018-12-21 08:57 | CRNA.PROGR ---
Anesthesia Note - Progress Notes Anesthesia Progress Note: Cheerful this am. States her pain is controlled. Some nausea last night but no emesis. Talked to her about her "difficult" airway. Told her it would be good to tell any anesthesia provider that her airway is difficult. " Rashard is anterior and her neck is now fused." Vital Signs - Last Taken Temperature 97.8 F 12/21/18 07:07 Pulse Rate 82 12/21/18 07:07 Respiratory Rate 20 12/21/18 07:07 Blood Pressure 128/68 12/21/18 07:07 Pulse Ox 93 12/21/18 07:07 No apparent anesthetic difficulties.
[2018-12-21 12:14] VITALS: BP 134/69; TEMP 97.5; O2SAT 94
[2018-12-21] MEDS: GABAPENTIN 300 MG CAPSULE PO SCH (12:22)
[2018-12-21] MEDS: SULFAMETHOXAZOLE/TRIMETHOPRIM 800/160 MG TABLET PO SCH (12:22)
== END 2018-12-21 15:03 | disposition home or self-care (01) ==
LOC: OR 10:12 → MED/SURG 10:12
PROVIDERS: ADMIT Neurological Surgery; ATTEND Neurological Surgery